=== PATIENT | male | born 1975 | race African-American/Black ===

== ENCOUNTER 2017-10-22 09:43 | Inpatient (IN) | payer OTHER ==
[~2017-10-22 09:43] MED LIST: CEFAZOLIN 1 GM INJ; ROCURONIUM 50 MG INJ
[2017-10-22] MEDS ORDERED: FENTAnyl 50 MCG/ML VIAL ×2 (11:13→15:30)
[2017-10-22] MEDS ORDERED: ROCURONIUM 50 MG INJ (11:13)
[2017-10-22] MEDS ORDERED: LIDOCAINE 2% (SDV) 5 ML INJ (11:13)
[2017-10-22] MEDS ORDERED: GLYCOPYRROLATE 0.4 MG INJ (11:13)
[2017-10-22] MEDS ORDERED: NEOSTIGMINE 3 MG/3 ML SYRINGE (11:13)
[2017-10-22] MEDS ORDERED: PROPOFOL 20 ML (11:13)
[2017-10-22] MEDS ORDERED: MIDAZOLAM 1 MG/ML 2 ML INJ (11:14)
[2017-10-22] MEDS ORDERED: SUCCINYLCHOLINE CHLORIDE 100 MG/5 ML SYG IV (11:17)
[2017-10-22] MEDS ORDERED: DEXAMETHASONE 4 MG/ML 1 ML INJ (11:17)
[2017-10-22] MEDS ORDERED: ONDANSETRON 4 MG INJ (11:18)
[2017-10-22] MEDS ORDERED: BUPIVACAINE 0.25% (MPF) 30 ML INJ (11:36)
[2017-10-22] MEDS ORDERED: CA CHLORIDE 10% 10 ML SYRINGE (11:37)
[2017-10-22] MEDS: D5W-0.45 NACL + KCL 20 MEQ 1,000 ML IV ×3 (12:19→21:17)
[2017-10-22] MEDS ORDERED: ZOLPIDEM 5 MG TAB PO (12:30)
[2017-10-22] MEDS: CEFAZOLIN 1 GM/50 ML (PMX) 50 ML IVPB ×2 (12:30→21:10)
[2017-10-22] MEDS ORDERED: DIPHENHYDRAMINE 50 MG INJ IV ×2 (12:30→17:30)
[2017-10-22] MEDS ORDERED: HYDROmorphONE 0.5 MG/0.5 ML SYG IV (12:30)
[2017-10-22] MEDS ORDERED: CEPASTAT LOZENGE MT (12:30)
[2017-10-22] MEDS ORDERED: BISACODYL 10 MG SUPP PR (12:30)
[2017-10-22] MEDS ORDERED: AL HYDROX/MG HYDROX/SIMETH 30 ML CUP PO (12:30)
[2017-10-22] MEDS ORDERED: ONDANSETRON 4 MG INJ IV (12:30)
[2017-10-22] MEDS ORDERED: NALOXONE (0.4 MG/ML) INJ IV (12:30)
[2017-10-22] MEDS ORDERED: ACETAMINOPHEN 325 MG TAB PO (12:30)
[2017-10-22] MEDS ORDERED: LABETALOL HCL 20MG INJ (13:24)
[2017-10-22] MEDS: CEFAZOLIN 1 GM INJ (15:04)
[2017-10-22] MEDS: SURGIFOAM POWDER 1 GM KIT ×2 (15:04)
[2017-10-22] MEDS: LIDOCAINE 1%/EPI 30 ML INJ (15:05)
[2017-10-22] MEDS: GELATIN SIZE 100 SPONGE (15:05)
[2017-10-22] MEDS: HEPARIN 1000 UNITS/ML 10 ML INJ (15:05)
[2017-10-22] MEDS: THROMBIN 5000 UNIT VIAL ×2 (15:06)
[2017-10-22] MEDS: TRIAMCINOLONE ACET 40 MG/ML INJ (16:08)
[2017-10-22] MEDS ORDERED: HYDROmorphONE (0.2 MG/ML) 10ML SYG IV ×3 (17:01→17:30)
[2017-10-22] MEDS ORDERED: MEPERIDINE 25 MG INJ (17:01)
[2017-10-22] MEDS: ONDANSETRON 4 MG INJ IV (17:15)
[2017-10-22] MEDS: HYDROmorphONE (0.2 MG/ML) 10ML SYG IV (17:15)
[2017-10-22] MEDS: MEPERIDINE 25 MG INJ IV (17:15)
[2017-10-22] MEDS: HYDROmorphONE 0.2 MG/ML PCA IV (17:29)
[2017-10-22] MEDS ORDERED: EPHEDrine SULFATE 50 MG/5 ML SYG IV (17:30)
[2017-10-22] MEDS ORDERED: LABETALOL HCL 20MG INJ IV (17:30)
[2017-10-22] MEDS ORDERED: hydrALAzine 20 MG INJ IV (17:30)
[2017-10-22] MEDS ORDERED: METOCLOPRAMIDE 10 MG INJ IV (17:30)
[2017-10-22] MEDS ORDERED: MIDAZOLAM 1 MG/ML 2 ML INJ IV (17:30)
[2017-10-22] MEDS ORDERED: FENTAnyl 50 MCG/ML VIAL IV ×3 (17:30)
[2017-10-22] MEDS ORDERED: ALBUTEROL 0.083% (NEB) 2.5 MG/3 ML AMP HHN (17:30)
[2017-10-22] MEDS: DOCUSATE SODIUM 100 MG CAP PO (21:10)
[2017-10-22] MEDS: CYCLOBENZAPRINE 10 MG TAB PO (23:33)
[2017-10-23] MEDS: D5W-0.45 NACL + KCL 20 MEQ 1,000 ML IV ×2 (03:44→16:10)
[2017-10-23] MEDS: CEFAZOLIN 1 GM/50 ML (PMX) 50 ML IVPB (03:44)
[2017-10-23] MEDS: HYDROmorphONE 0.2 MG/ML PCA IV ×2 (03:51→20:48)
[2017-10-23 05:55] LABS: ADD MAN DIFF? NO
[2017-10-23 06:01] LABS: WHITE BLOOD COUNT 14.3 10^3/ul (4.8-10.8)
[2017-10-23 06:01] LABS: BASOPHILS % 0.1 % (0.0-2.0); HEMOGLOBIN 14.7 g/dl (14.0-18.0); LYMPHOCYTES # 0.7 10^3/ul (0.8-2.9); MEAN CORPUSCULAR HEMOGLOBIN 30.7 pg (29.0-33.0); MEAN CORPUSCULAR HGB CONC 34.2 g/dl (32.0-37.0); MEAN CORPUSCULAR VOLUME 89.8 fl (82.0-101.0); MEAN PLATELET VOLUME 9.1 fl (7.4-10.4); MONOCYTE # 1.1 10^3/ul (0.3-0.9); MONOCYTES % 7.8 % (0.0-11.0); NEUTROPHIL # 12.4 10^3/ul (1.6-7.5); NEUTROPHILS % 86.3 % (39.0-77.0); PLATELET COUNT 245 10^3/UL (140-415); RED BLOOD COUNT 4.79 10^6/ul (4.70-6.10); RED CELL DISTRIBUTION WIDTH 13.9 % (11.5-14.5)
[2017-10-23 06:27] LABS: ANION GAP 15 (8-16); BLOOD UREA NITROGEN 14 mg/dl (7-20); CALCIUM 8.6 mg/dl (8.4-10.2); CARBON DIOXIDE 26 mmol/L (21-31); CHLORIDE 103 mmol/L (97-110); CREATININE 1.09 mg/dl (0.61-1.24); GLUCOSE 127 mg/dl (70-220); MAGNESIUM 1.9 mg/dl (1.7-2.5); POTASSIUM 4.9 mmol/L (3.5-5.1); SODIUM 139 mmol/L (135-144)
[2017-10-23] MEDS: DOCUSATE SODIUM 100 MG CAP PO ×2 (09:00→20:21)
[2017-10-24] MEDS: D5W-0.45 NACL + KCL 20 MEQ 1,000 ML IV (00:51)
[2017-10-24 05:11] LABS: ADD MAN DIFF? NO
[2017-10-24 05:14] LABS: WHITE BLOOD COUNT 12.4 10^3/ul (4.8-10.8)
[2017-10-24 05:14] LABS: BASOPHILS % 0.2 % (0.0-2.0); EOSINOPHILS % 0.2 % (0.0-7.0); HEMATOCRIT 42.3 % (42.0-52.0); HEMOGLOBIN 14.2 g/dl (14.0-18.0); LYMPHOCYTES # 1.1 10^3/ul (0.8-2.9); LYMPHOCYTES % 9.1 % (15.0-51.0); MEAN CORPUSCULAR HEMOGLOBIN 30.7 pg (29.0-33.0); MEAN CORPUSCULAR HGB CONC 33.6 g/dl (32.0-37.0); MEAN CORPUSCULAR VOLUME 91.4 fl (82.0-101.0); MEAN PLATELET VOLUME 8.8 fl (7.4-10.4); MONOCYTE # 1.1 10^3/ul (0.3-0.9); MONOCYTES % 8.9 % (0.0-11.0); PLATELET COUNT 219 10^3/UL (140-415); RED BLOOD COUNT 4.63 10^6/ul (4.70-6.10); RED CELL DISTRIBUTION WIDTH 14.1 % (11.5-14.5)
[2017-10-24 06:01] LABS: ANION GAP 16 (8-16); BLOOD UREA NITROGEN 15 mg/dl (7-20); CARBON DIOXIDE 27 mmol/L (21-31); CHLORIDE 102 mmol/L (97-110); CREATININE 1.05 mg/dl (0.61-1.24); GLUCOSE 131 mg/dl (70-220); MAGNESIUM 2.1 mg/dl (1.7-2.5); POTASSIUM 4.8 mmol/L (3.5-5.1); SODIUM 140 mmol/L (135-144)
[2017-10-24] MEDS: DOCUSATE SODIUM 100 MG CAP PO (08:51)
[2017-10-24] MEDS ORDERED: OXYCODONE/ACETAMINOPHEN (10/325) TAB PO (09:00)
[2017-10-24] MEDS: OXYCODONE/ACETAMINOPHEN (10/325) TAB PO (09:07)
[2017-10-24] MEDS ORDERED: HYDROCODONE/APAP (10/325) TAB PO ×2 (10:00)
== END 2017-10-24 12:50 | disposition home or self-care (01) | DRG 454 ==
LOC: REC 09:43 → MS1 18:15
PROC: 0SG30A0 Fusion of Lumbosacral Joint with Interbody Fusion Device, Anterior Approach, Anterior Column, Open Approach (ICD-10-PCS; principal; 2017-10-22 12:00)
PROC: 0SG30K1 Fusion of Lumbosacral Joint with Nonautologous Tissue Substitute, Posterior Approach, Posterior Column, Open Approach (ICD-10-PCS; 2017-10-22 12:00)
PROC: 0SB20ZZ Excision of Lumbar Vertebral Disc, Open Approach (ICD-10-PCS; 2017-10-22 12:00)
PROC: 07DR3ZZ Extraction of Iliac Bone Marrow, Percutaneous Approach (ICD-10-PCS; 2017-10-22 12:00)
DX: M51.17 Intervertebral disc disorders with radiculopathy, lumbosacral region (principal); M48.57XA Collapsed vertebra, not elsewhere classified, lumbosacral region, initial encounter for fracture; M51.26 Other intervertebral disc displacement, lumbar region; Z98.1 Arthrodesis status; I10 Essential (primary) hypertension; E78.5 Hyperlipidemia, unspecified; M19.90 Unspecified osteoarthritis, unspecified site; Z85.47 Personal history of malignant neoplasm of testis; Z90.79 Acquired absence of other genital organ(s)
CPT/HCPCS: 72100; 72110; 80048; 83735; 85025; 86850; 86900; 86901; 86999; 87086; 97116; 97161; 97530